=== PATIENT | female | born 1945 | race Two or more races ===

== ENCOUNTER → 2018-10-05 | Emergency (ER) | payer OTHER ==
[~2018-10-05] VITALS: Ht 162.6 cm; Wt 99.8 kg
[~2018-10-05] MED LIST: LABETALOL HCL100 MG
== END | disposition home or self-care (01) ==
LOC: ER 19:59
DX: I95.2 Hypotension due to drugs (principal); T50.995A Adverse effect of other drugs, medicaments and biological substances, initial encounter; Y92.89 Other specified places as the place of occurrence of the external cause

== ENCOUNTER 2021-08-23 10:09 | Outpatient (CLI) | payer OTHER | END 2021-08-23 10:14 | disposition home or self-care (01) | LOC: RAD 10:09 | PROVIDERS: ATTEND Ophthalmology | DX: I10 Essential (primary) hypertension (principal); Z98.41 Cataract extraction status, right eye; H25.011 Cortical age-related cataract, right eye ==

== ENCOUNTER 2022-04-04 07:07 | Outpatient (CLI) | payer OTHER | END 2022-04-04 07:09 | disposition home or self-care (01) | LOC: NUCLEAR 07:07 | PROVIDERS: ATTEND Internal Medicine | DX: I73.9 Peripheral vascular disease, unspecified (principal) ==

== ENCOUNTER 2022-04-08 07:27 | Outpatient (CLI) | payer OTHER | END 2022-04-08 08:00 | disposition home or self-care (01) | LOC: MRI 07:27 | PROVIDERS: ATTEND Internal Medicine | DX: R51.9 Headache, unspecified (principal) | CPT/HCPCS: 70551 ==

== ENCOUNTER 2022-06-13 10:02 | Outpatient (CLI) | payer OTHER | END 2022-06-13 10:04 | disposition home or self-care (01) | LOC: NUCLEAR 10:02 | PROVIDERS: ATTEND Internal Medicine | DX: I87.2 Venous insufficiency (chronic) (peripheral) (principal) ==

== ENCOUNTER 2023-02-22 16:19 | Emergency (ER) | payer OTHER ==
[~2023-02-22] VITALS: Ht 165.1 cm; Wt 90.7 kg
[2023-02-22] MEDS ORDERED: LOSARTAN-HCTZ1 EAC1 PO (16:53)
[2023-02-22] MEDS ORDERED: SYNTHROID100 MCG PO (16:53)
[2023-02-22] MEDS ORDERED: PAROXETINE HCL20 MG PO (16:54)
[2023-02-22] MEDS ORDERED: ADVIL DUAL ACT1 EACH PO (20:29)
[2023-02-22] MEDS ORDERED: CEFADROXIL500 MG PO (20:33)
== END 2023-02-22 20:32 | disposition home or self-care (01) ==
LOC: ER 16:19
DX: S00.83XA Contusion of other part of head, initial encounter (principal); W19.XXXA Unspecified fall, initial encounter; Y93.89 Activity, other specified; Y92.89 Other specified places as the place of occurrence of the external cause; Y99.9 Unspecified external cause status
CPT/HCPCS: 70486; 73120; 96372; 99284; J0696; J1885

== ENCOUNTER 2023-07-13 14:50 | Emergency (ER) | payer OTHER ==
[~2023-07-13] VITALS: Ht 165.1 cm; Wt 96.2 kg
[~2023-07-13 14:50] MED LIST changes: +ADVIL DUAL ACT1 EACH PO; +CEFADROXIL500 MG PO; +LOSARTAN-HCTZ1 EAC1 PO; +PAROXETINE HCL20 MG PO; +SYNTHROID100 MCG PO
[2023-07-13 17:12] LABS: HEMATOCRIT 38.4 % (36.0-45.00); HEMOGLOBIN 12.9 g/dL (12.0-15.00); MEAN CELL VOLUME 90.2 fL (80.00-100.00); MEAN CORPUSCULAR HEMOGLOBIN 30.3 pg (27.00-32.0); MEAN CORPUSCULAR HGB CONC 33.5 g/dl (32.0-36.0); PLATELET COUNT 336 K/uL (150-450); RED BLOOD COUNT 4.26 M/uL (4.00-6.00)
== END 2023-07-13 17:56 | disposition home or self-care (01) ==
LOC: ER 14:50
PROVIDERS: General Practice
DX: K29.60 Other gastritis without bleeding (principal); J00 Acute nasopharyngitis [common cold]
CPT/HCPCS: 36415; 96365; 99282; J3490

== ENCOUNTER 2023-09-11 09:46 | Outpatient (CLI) | payer OTHER | END 2023-09-11 09:52 | disposition home or self-care (01) | LOC: SONOGRAMA 09:46 | PROVIDERS: ATTEND Obstetrics & Gynecology Obstetrics | DX: R10.13 Epigastric pain (principal) ==

== ENCOUNTER 2023-11-10 12:44 | Outpatient (CLI) | payer OTHER | END 2023-11-10 12:46 | disposition home or self-care (01) | LOC: NUCLEAR 12:44 | PROVIDERS: ATTEND Internal Medicine Endocrinology, Diabetes & Metabolism | DX: M81.0 Age-related osteoporosis without current pathological fracture (principal) ==

== ENCOUNTER 2024-03-12 13:20 | Outpatient (CLI) | payer OTHER | END 2024-03-12 13:22 | disposition home or self-care (01) | LOC: SONOGRAMA 13:20 | PROVIDERS: ATTEND Internal Medicine | DX: N64.4 Mastodynia (principal) ==

== ENCOUNTER 2024-06-28 13:27 | Outpatient (CLI) | payer OTHER | END 2024-06-28 13:35 | disposition home or self-care (01) | LOC: RAD 13:27 | PROVIDERS: ATTEND Internal Medicine | DX: S99.912A Unspecified injury of left ankle, initial encounter (principal) ==

== ENCOUNTER 2024-07-17 16:24 | Emergency (ER) | payer OTHER ==
[~2024-07-17] VITALS: Ht 165.1 cm; Wt 90.7 kg
[2024-07-17] MEDS ORDERED: METOCLOPRAMIDE HCL 5 MG/ML VIAL IM ONE (17:00)
[2024-07-17] MEDS ORDERED: TETANUS & DIPHTHERIA TOX,ADULT 0.5 ML VIAL IM ONE (17:15)
== END 2024-07-17 19:47 | disposition home or self-care (01) ==
LOC: ER 16:24
DX: S49.82XA Other specified injuries of left shoulder and upper arm, initial encounter (principal); W19.XXXA Unspecified fall, initial encounter; Y93.89 Activity, other specified; Y92.89 Other specified places as the place of occurrence of the external cause; Y99.8 Other external cause status
CPT/HCPCS: 70450; 73030; 73070; 73130; 73521; 90471; 90714; 99284; J1670

== ENCOUNTER 2024-08-19 10:24 | Outpatient (CLI) | payer OTHER | END 2024-08-19 10:28 | disposition home or self-care (01) | LOC: RAD 10:24 | PROVIDERS: ATTEND Internal Medicine | DX: R07.9 Chest pain, unspecified (principal) ==

== ENCOUNTER 2025-04-11 13:26 | Outpatient (CLI) | payer OTHER | END 2025-04-11 13:38 | disposition home or self-care (01) | LOC: MRI 13:26 | PROVIDERS: ATTEND Internal Medicine | DX: M54.50 Low back pain, unspecified (principal) | CPT/HCPCS: 72148 ==